=== PATIENT | male | born 1950 | race Caucasian/White ===

== ENCOUNTER 2016-07-04 13:20 | Outpatient (CLI) | payer MEDICARE, BC | END 2016-07-04 23:59 | disposition home health service (06) | LOC: WOU 13:20 | PROVIDERS: ATTEND Specialist | DX: L89.213 Pressure ulcer of right hip, stage 3 (principal); G82.21 Paraplegia, complete; B91 Sequelae of poliomyelitis; J44.9 Chronic obstructive pulmonary disease, unspecified; Z87.891 Personal history of nicotine dependence; I10 Essential (primary) hypertension; Z82.3 Family history of stroke; Z82.5 Family history of asthma and other chronic lower respiratory diseases; Z99.3 Dependence on wheelchair | CPT/HCPCS: A6402; A6407; G0463 ==

== ENCOUNTER 2016-07-18 13:20 | Outpatient (CLI) | payer MEDICARE, BC | END 2016-07-18 23:59 | disposition home health service (06) | LOC: WOU 13:20 | PROVIDERS: ATTEND Specialist | DX: L89.213 Pressure ulcer of right hip, stage 3 (principal); G82.21 Paraplegia, complete; B91 Sequelae of poliomyelitis; E66.9 Obesity, unspecified; Z68.39 Body mass index [BMI] 39.0-39.9, adult; J44.9 Chronic obstructive pulmonary disease, unspecified; Z87.891 Personal history of nicotine dependence; Z82.5 Family history of asthma and other chronic lower respiratory diseases; Z83.49 Family history of other endocrine, nutritional and metabolic diseases; R53.83 Other fatigue; R19.4 Change in bowel habit | CPT/HCPCS: A6402; A6407; G0463 ==

== ENCOUNTER 2016-08-01 13:10 | Outpatient (CLI) | payer MEDICARE, BC | END 2016-08-01 23:59 | disposition home health service (06) | LOC: WOU 13:10 | PROVIDERS: ATTEND Specialist | DX: L89.213 Pressure ulcer of right hip, stage 3 (principal); G82.21 Paraplegia, complete; B91 Sequelae of poliomyelitis; Z99.3 Dependence on wheelchair; E66.9 Obesity, unspecified; Z68.39 Body mass index [BMI] 39.0-39.9, adult; Z71.3 Dietary counseling and surveillance; Z87.891 Personal history of nicotine dependence; J44.9 Chronic obstructive pulmonary disease, unspecified; I10 Essential (primary) hypertension | CPT/HCPCS: A6402; G0463 ==

== ENCOUNTER 2016-08-15 13:37 | Outpatient (CLI) | payer MEDICARE, BC | END 2016-08-15 23:59 | disposition home health service (06) | DX: L89.213 Pressure ulcer of right hip, stage 3 (principal); G82.21 Paraplegia, complete; B91 Sequelae of poliomyelitis; J44.9 Chronic obstructive pulmonary disease, unspecified; I10 Essential (primary) hypertension; Z82.3 Family history of stroke; Z83.49 Family history of other endocrine, nutritional and metabolic diseases; Z82.5 Family history of asthma and other chronic lower respiratory diseases; E66.9 Obesity, unspecified | CPT/HCPCS: A6197; A6402; G0463 ==

== ENCOUNTER 2016-08-29 13:51 | Outpatient (CLI) | payer MEDICARE, BC | END 2016-08-29 23:59 | disposition home health service (06) | LOC: WOU 13:51 | PROVIDERS: ATTEND Specialist | DX: L89.213 Pressure ulcer of right hip, stage 3 (principal); G82.21 Paraplegia, complete; B91 Sequelae of poliomyelitis; J44.9 Chronic obstructive pulmonary disease, unspecified; I10 Essential (primary) hypertension | CPT/HCPCS: A6210; A6402 ==

== ENCOUNTER 2016-09-19 13:55 | Outpatient (CLI) | payer MEDICARE, BC | END 2016-09-19 23:59 | disposition home health service (06) | LOC: WOU 13:55 | PROVIDERS: ATTEND Specialist | DX: L89.213 Pressure ulcer of right hip, stage 3 (principal); G82.21 Paraplegia, complete; B91 Sequelae of poliomyelitis; J44.9 Chronic obstructive pulmonary disease, unspecified; Z87.891 Personal history of nicotine dependence; E66.9 Obesity, unspecified; Z68.39 Body mass index [BMI] 39.0-39.9, adult; Z86.73 Personal history of transient ischemic attack (TIA), and cerebral infarction without residual deficits | CPT/HCPCS: 11042; A6402 ==

== ENCOUNTER 2016-10-03 14:34 | Outpatient (CLI) | payer MEDICARE, BC | END 2016-10-03 23:59 | disposition home health service (06) | LOC: WOU 14:34 | PROVIDERS: ATTEND Specialist | DX: L89.213 Pressure ulcer of right hip, stage 3 (principal); G82.21 Paraplegia, complete; B91 Sequelae of poliomyelitis; J44.9 Chronic obstructive pulmonary disease, unspecified; Z79.52 Long term (current) use of systemic steroids; Z87.891 Personal history of nicotine dependence; Z79.899 Other long term (current) drug therapy; Z82.5 Family history of asthma and other chronic lower respiratory diseases; E66.9 Obesity, unspecified; Z68.39 Body mass index [BMI] 39.0-39.9, adult; R06.02 Shortness of breath | CPT/HCPCS: 11042; A6402; G0463 ==

== ENCOUNTER 2016-10-17 13:35 | Outpatient (CLI) | payer MEDICARE, BC | END 2016-10-17 23:59 | disposition home health service (06) | LOC: WOU 13:35 | PROVIDERS: ATTEND Specialist | DX: L89.213 Pressure ulcer of right hip, stage 3 (principal); G82.21 Paraplegia, complete; B91 Sequelae of poliomyelitis; J44.9 Chronic obstructive pulmonary disease, unspecified; I10 Essential (primary) hypertension; Z79.899 Other long term (current) drug therapy | CPT/HCPCS: A6402; G0463 ==

== ENCOUNTER 2016-11-07 13:22 | Outpatient (CLI) | payer MEDICARE, BC | END 2016-11-07 23:59 | disposition home health service (06) | LOC: WOU 13:22 | PROVIDERS: ATTEND Specialist | DX: L89.213 Pressure ulcer of right hip, stage 3 (principal); S51.812A Laceration without foreign body of left forearm, initial encounter; S51.811A Laceration without foreign body of right forearm, initial encounter; X58.XXXA Exposure to other specified factors, initial encounter; Y92.89 Other specified places as the place of occurrence of the external cause; B91 Sequelae of poliomyelitis; G82.21 Paraplegia, complete; Z87.891 Personal history of nicotine dependence; J44.9 Chronic obstructive pulmonary disease, unspecified; I10 Essential (primary) hypertension | CPT/HCPCS: A6197; A6210; G0463; A6402 ==